=== PATIENT | male | born 1955 | race African-American/Black ===

== ENCOUNTER 2022-07-08 18:42 | Emergency (ER) | payer OTHER, SELFPAY ==
[2022-07-08] VITALS (10 sets, daily range): BP systolic 170–225; BP diastolic 111–135; PULSE 52–58; RESP 14–18; TEMP 36.7; O2SAT 93–100
--- NOTE | ~2022-07-08 | XR_ITS ---
EXAMINATION: XR chest 2V Exam Date/Time: 07/08/2022 22:35 [facility]ACK[facility] FUSER HISTORY: fever, cough. CONGESTED AND DYSPNEA FOR A LITTLE OVER A WEEK Comparison: None available. RESULT: Lines, tubes, and devices: None. Lungs and pleura: Clear. Cardiomediastinal silhouette: Unremarkable. Other: No acute osseous or upper abdominal finding. IMPRESSION: No acute cardiopulmonary process. Reviewed, dictated and finalized at location [facility]
--- NOTE | 2022-07-08 20:27 | PC.NURSE ---
ERP notified of Pt. BP. Pt. has no complaints other than sinus symptoms. Pt. stated using afrin and sudafed today. No new orders at this time.
--- NOTE | 2022-07-08 23:24 | ED.URI ---
HPI - URI/Sore Throat General Chief Complaint: Upper Respiratory Infection <Lakisha Espinosa PA-C - Last Filed: 07/09/22:29> Stated Complaint: shortness of breath, cough, congestion, fever <Lakisha Espinosa PA-C - Last Filed: 07/09/22:29> Time Seen by Provider: 07/08/22 22:13 <Lakisha Espinosa PA-C - Last Filed: 07/09/22:29> Source: patient <Lakisha Espinosa PA-C - Last Filed: 07/09/22:29> Mode of arrival: ambulatory <Lakisha Espinosa PA-C - Last Filed: 07/09/22:29> Limitations: no limitations <Lakisha Espinosa PA-C - Last Filed: 07/09/22:29> History of Present Illness HPI Narrative: This is a 66-year-old male that presents to the emergency department for cold symptoms ongoing over the last week. Reports fever, cough, nasal congestion, and headache. He has been taking decongestants with some relief. Although he does report he still has a lot of congestion in his nose. Also reports he has been wheezing. Denies chest pain or shortness of breath. <Lakisha Espinosa PA-C - Last Filed: 07/09/22:29> Related Data Allergies/Adverse Reactions: Allergies Allergy/AdvReac Type Severity Reaction Status Date / Time No Known Allergies Allergy Verified 07/08/22 18:43 <Lakisha Espinosa PA-C - Last Filed: 07/09/22:29> Review of Systems Review of Systems: CONSTITUTIONAL: Denies fever ENT: Reports rhinorrhea, congestion CARDIOVASCULAR: Denies chest pain RESPIRATORY: Reports cough. Denies dyspnea. <Lakisha Espinosa PA-C - Last Filed: 07/09/22:29> All systems reviewed & are unremarkable except as noted in HPI and below <Lakisha Espinosa PA-C - Last Filed: 07/09/22 01:29> [facility] Past Medical History Medical History: Medical History (Updated 07/09/22 @ 01:26 by Lakisha Espinosa PA-C) History of hypertension <Lakisha Espinosa PA-C - Last Filed: 07/09/22 01:29> Social History Social History: Social History (Updated 07/09/22 @ 01:28 by Lakisha Espinosa PA-C) Substance use: never <Lakisha Espinosa PA-C - Last Filed: 07/09/22 01:29> Exam Narrative: GENERAL: Well-appearing, well-nourished, and in no acute distress. HEAD: Normocephalic, atraumatic. EYES: PERRLA and EOMI. ENT: Nares clear, no rhinorrhea or epistaxis. Mucous membranes moist. Oropharynx without tonsillar hypertrophy exudate or other lesions. Bilateral TMs pearly escobar non-bulging NECK: Supple. No adenopathy or masses. CHEST: No respiratory distress. Mild expiratory wheezing. No rales or rhonchi HEART: Regular rate and rhythm. No murmur heard. Normal peripheral pulses. EXTREMITIES: Normal range of motion. No edema. SKIN: Warm, dry, no rash. NEURO: No focal deficits. Alert and oriented x3. PSYCH: Normal mood and affect <Lakisha Espinosa PA-C - Last Filed: 07/09/22 01:29> Course ADOLESCENT PSYCHIATRIST/PA Physician Supervision For this patient encounter, I reviewed the ADOLESCENT PSYCHIATRIST or PA documentation, treatment plan, and medical decision making <Alfredo Blake MD - Last Filed: 07/09/22 02:34> Vital Signs Vital signs: Vital Signs Temperature 98.1 F 07/08/22 20:17 Pulse Rate 58 L 07/08/22 20:17 Respiratory Rate 14 07/08/22 20:17 Blood Pressure 212/111 H 07/08/22 20:17 Pulse Oximetry 98 07/08/22 20:17 Oxygen Delivery Room Air 07/08/22 20:17 Temperature 98.1 F 07/08/22 20:17 Pulse Rate 62 07/09/22 01:20 Respiratory Rate 18 07/09/22 01:39 Blood Pressure 184/92 H 07/09/22 01:20 Pulse Oximetry 98 07/09/22 01:39 Oxygen Delivery Room Air 07/08/22 23:40 <Lakisha Espinosa PA-C - Last Filed: 07/09/22 01:29> Vital Signs Temperature 98.1 F 07/08/22 20:17 Pulse Rate 58 L 07/08/22 20:17 Respiratory Rate 14 07/08/22 20:17 Blood Pressure 212/111 H 07/08/22 20:17 Pulse Oximetry 98 07/08/22 20:17 Oxygen Delivery Room Air 07/08/22 20:17 Temperature 98.1 F 07/08/22 20:17 Pulse Rate 62 07/09/22 01:20 Respiratory Rate 18
[2022-07-08] MEDS: ALBUTEROL SULFATE NEB 2.5 MG/3 ML INH 5 MG INHALATION (23:32)
[2022-07-08] MEDS: IPRATROPIUM BR 0.02% INH SOLN 0.5 MG/2.5 ML VIAL INHALATION (23:33)
[2022-07-09 00:13] LABS: Basophils Absolute Auto 0.1 K/mm3 (0.0-0.1); Basophils Percent Auto 0.6 % (0.2-1.2); Hematocrit 44.3 % (42.0-52.0); Hemoglobin 14.9 g/dL (14.0-18.0); Immature Granulocyte Absolute 0.04 K/mm3 (0.00-0.031); Immature Granulocyte Percent A 0.4 % (0-0.5); Lymphocytes Absolute Auto 3.58 K/mm3 (0.9-3.2); Mean Corpuscular HGB Conc 33.6 g/dl (32-36); Mean Corpuscular Hemoglobin 31.8 pg (26-34); Mean Corpuscular Volume 94.5 fl (80-100); Mean Platelet Volume 10.2 fl (7.4-10.4); Monocytes Absolute Auto 0.7 K/mm3 (0.1-0.6); Monocytes Percent Auto 7.3 % (2.6-8.5); Neutrophils Absolute Auto 2.7 K/mm3 (1.3-6.7); Neutrophils Percent Auto 29.6 % (45.5-73.1); Platelet Count Result 194 k/mm3 (150-375); Red Blood Count 4.69 M/mm3 (4.6-6.20); Red Cell Distribution Width 14.4 % (11.5-14.5); White Blood Count 9.1 K/mm3 (4.5-10.0)
[2022-07-09 00:22] LABS: Anion Gap 7 mmol/L (8-16); Blood Urea Nitrogen 23 mg/dL (9-20); Calcium 8.3 mg/dL (8.4-10.2); Carbon Dioxide 26 mmol/L (22-30); Chloride 109 mmol/L (98-107); Estimated CRCL calculation 59 ml/min; Estimated Glomerular Filt Rate > 60; Glucose 83 mg/dL (65-110); Potassium 3.7 mmol/L (3.4-5.0); Sodium 142 mmol/L (137-145)
[2022-07-09] MEDS: hydrALAZINE HCL 20 MG/ML VIAL 10 MG IV PUSH (00:25)
[2022-07-09] MEDS: methylPREDNISolone SOD SUCC 125 MG VIAL IV PUSH (00:26)
[2022-07-09 00:41] LABS: Eosinophils Percent Auto 22.5 % (0-4.4)
[2022-07-09 00:42] LABS: Lymphocytes Percent Auto 39.6 % (18.3-44.2)
[2022-07-09 00:47] LABS: Influenza A QL RT-PCR Negative (Negative); Influenza B QL RT-PCR Negative (Negative); SARS-CoV-2 RNA PCR Negative
[2022-07-09 01:20] VITALS: BP 184/92; PULSE 62; RESP 18; O2SAT 98
[2022-07-09 01:39] VITALS: RESP 18; O2SAT 98
== END 2022-07-09 01:42 | disposition home or self-care (01) ==
PROVIDERS: Physician Assistant; Emergency Provider Emergency Medicine
DX: J20.9 Acute bronchitis, unspecified (principal); I10 Essential (primary) hypertension; Z20.822 Contact with and (suspected) exposure to COVID-19
CPT/HCPCS: 36415; 71046; 80048; 85025; 87636; 94640; 96374; 96375; 99284; J0360; J2930